=== PATIENT | female | born 1980 | race Caucasian/White ===

== ENCOUNTER 2020-07-16 06:37 | Day surgery (SDC) | payer OTHER, SELFPAY ==
[2020-07-10 14:12] VITALS: BMI 26.1
--- NOTE | 2020-07-14 13:47 | HO.ANESPROP2 ---
Documented by User: Rivka Benoit 07/14/20 13:48 HPI - Anesthesia Eval Consult details Narrative: 40yo F for Upper End[facility] and [facility] Past Medical History Medical History Anemia Depression with anxiety Frequent UTI IBS (irritable bowel syndrome) Persistent adjustment disorder with anxiety Surgical History Surgical History Hx of colonoscopy Social History Social History Are you a primary home care and home health aides teacher to a significant other at home: No Do you presently have visiting nurse or other home services: No Smoking Status: Unknown if ever smoked Advance Directives: No Advance Directives Information Provided: No Advance Directives on File: No Meds Allergies Allergy/AdvReac Type Severity Reaction Status Date / Time No Known Allergies Allergy Unverified 07/10/20 14:00 [No Known Allergies*] Home Medications Medication Instructions Recorded Confirmed Type alosetron 1 tab PO BID 07/10/20 07/10/20 History alprazolam 1 tab PO DAILY PRN 07/10/20 07/10/20 History clonidine HCl 1 - 2 tab PO BEDTIME 07/10/20 07/10/20 History dicyclomine 1 - 2 cap PO QID PRN 07/10/20 07/10/20 History doxepin 1 cap PO BEDTIME 07/10/20 07/10/20 History fluoxetine 2 cap PO QAM 07/10/20 07/10/20 History lamotrigine 1 tab PO BID 07/10/20 07/10/20 History loperamide [Imodium A-D] 2 mg PO Q6H PRN 07/10/20 07/10/20 History Exam Exam Date and Time: July 14, 2020 1347 Height,Weight and Vital Signs: Height 5 ft 9.5 in Weight 81.465 kg Pertinent Lab Results Pertinent Lab Results: Laboratory Tests 05/18/20 05/18/20 13:54 13:54 WBC 6.4 Hgb 11.3 L Hct 33.8 L Plt Count 317 Sodium 136 Potassium 3.9 Chloride 105 BUN 13 Creatinine 0.96 Assessment and Plan Assessment Anesthesia Assessment: Chart Reviewed Documented by User: Ashley Dunaway 07/16/20 07:48 [facility] Past Medical History Medical History Anemia Depression with anxiety Frequent UTI IBS (irritable bowel syndrome) Persistent adjustment disorder with anxiety Surgical History Surgical History Hx of colonoscopy Social History Social History Are you a primary home care and home health aides teacher to a significant other at home: No Do you presently have visiting nurse or other home services: No Smoking Status: Unknown if ever smoked Advance Directives: No Advance Directives Information Provided: No Advance Directives on File: No Meds Allergies Allergy/AdvReac Type Severity Reaction Status Date / Time No Known Allergies Allergy Unverified 07/10/20 14:00 [No Known Allergies*] Home Medications Medication Instructions Recorded Confirmed Type alosetron 1 tab PO BID 07/10/20 07/10/20 History alprazolam 1 tab PO DAILY PRN 07/10/20 07/10/20 History clonidine HCl 1 - 2 tab PO BEDTIME 07/10/20 07/10/20 History dicyclomine 1 - 2 cap PO QID PRN 07/10/20 07/10/20 History doxepin 1 cap PO BEDTIME 07/10/20 07/10/20 History fluoxetine 2 cap PO QAM 07/10/20 07/10/20 History lamotrigine 1 tab PO BID 07/10/20 07/10/20 History loperamide [Imodium A-D] 2 mg PO Q6H PRN 07/10/20 07/10/20 History Exam Airway Mallampati Class: II TM Dist: >3cm Neck ROM: Full Heart: RRR Lungs: CTA Assessment and Plan Assessment Anesthesia Assessment: Anesthesia Plan Discussed and Chart Reviewed Final Anesthetic Review NPO: Yes ASA Class: II Final Preanesthetic Review: Meds/Allgs Chart Reviewed, Consent Obtained/Reviewed and Anes Risks/Benef Reviewed Patient Risk: Low Procedure Risk: Intermediate Anesthetic Plan Anesthetic Plan: MAC: Disposition: Standard PACU
[2020-07-16 06:44] VITALS: BP 158/106; PULSE 107; RESP 18; TEMP 36.7; O2SAT 98
[2020-07-16] MEDS: Lactated Ringers 1,000 ML 100 ML IVCONT (07:05)
[2020-07-16 07:08] LABS: UPreg QC Valid YES
[2020-07-16 07:10] LABS: Urine Pregnancy NEGATIVE (NEGATIVE)
--- NOTE | 2020-07-16 07:21 | MHC.SHP ---
Pre-Procedural Eval Section B Chief Complaint: ANEMIA Details of Present Illness: Diarrhea, colon cancer screening No clinical changes since 05/06/20 Relevant Family History (Specify if Yes): No Relevant Social History: Alcohol Use (social) Present Medications: see Short Stay Collaborative assessment Medical History: Significant History (Depression/Anxiety) History of Previous Operations: Relevant previous surgery/procedure and date(s) (colonoscopy 12 years ago--[place]) Allergies: Allergies Allergy/AdvReac Type Severity Reaction Status Date / Time No Known Allergies Allergy Unverified 07/10/20 14:00 [No Known Allergies*] Review of Systems Sugical H&P ROS: Negative: Constitution, Cardiovascular, Respiratory, Psychiatric and Gastrointestinal Exam Surgical H&P Exam: Normal: HEENT, Normal: Heart, Normal: Lungs and Normal: Abdomen Plan Diagnosis/Plan: Unchanged Patient has been examined and remains a candidate for the planned procedures--YES
[2020-07-16 08:25] VITALS: BP 113/73; PULSE 79; TEMP 36.6; O2SAT 99
--- NOTE | 2020-07-16 08:27 | PM.PROC ---
Brief Operative Note Date of procedure: 07/16/20 Pre-op diagnosis: DIARRHEA, COLON CANCER SCREENING Post-op diagnosis: other (SUPERFICIAL GASTRITIS, NEG COLON) Procedure: EGD W/ BX; COLO WITH MULTIPLE BX Anesthesia: MAC (Yamilka ESPINOZA CRNA) Surgeon: Meka Alcazar Estimated blood loss (mL): 10 Pathology: other (DUODENAL,GASTRIC, TERMINAL ILEAL, RIGHT COLON, LEFT COLON, RECTOSIGMOID) Condition: stable Disposition: PACU
--- NOTE | 2020-07-16 08:32 | PC.NURSE ---
patient alert and awake. sitting up. no s/sx of resp distress. po challenge.
--- NOTE | 2020-07-16 08:41 | PC.NURSE ---
patient sitting up bed drinkiong gee humberto. no complaints.
--- NOTE | 2020-07-16 08:41 | HO.POSTANES ---
Post Anesthesia Evaluation Post Anesthesia Evaluation Vital Signs: Vital Signs Temp Pulse Resp BP Pulse Ox 07/16/20 08:25 97.8 F 79 113/73 99 07/16/20 06:44 98.1 F 107 H 18 158/106 H 98 Anesthesia: Monitored Mental Status: Awake Pain Control: Satisfactory Nausea/Vomiting: None Hydration: Adequate Anesthesia-Related Issues: No Anes. Related Issues
[2020-07-16 08:42] VITALS: BP 132/85; PULSE 79; RESP 16
--- NOTE | 2020-07-16 08:46 | PC.NURSE ---
morro po challenge. swallows without issues. called for ride. 100 lr infused in pacu.
--- NOTE | 2020-07-16 08:55 | PC.NURSE ---
voided in bathroom one assist. denies pain or nausea. removed iv. dressing self in chair.
--- NOTE | 2020-07-16 10:23 | OP_ITS ---
SURGEON: Meka Alcazar MD PREOPERATIVE DIAGNOSIS: Chronic diarrhea with urgency;Colon cancer screening POSTOPERATIVE DIAGNOSIS: Superficial gastritis; Colonoscopy:Neg PROCEDURE PERFORMED: EGD with bx, [place] with multiple bx ESTIMATED BLOOD LOSS: Minimal. COMPLICATIONS: None. ANESTHESIA: Monitored ANESTHESIOLOGIST: Janine Alfred CRNA ASSISTANTS: No assistant professor of music. SPECIMENS: Specimens removed, duodenal biopsy, gastric biopsy, upper endoscopy. Colonoscopy specimens terminal ileum, right colon, left colon, rectosigmoid. PREOPERATIVE DIAGNOSES: Diarrhea, intermittent worsening ? irritable bowel with diarrhea versus inflammatory bowel disease, colon cancer screening PRIMARY CARE PROVIDER: Janine Villar NP SPINNING LATHE OPERATOR AUTOMATIC: Dr. Alcazar. PROCEDURES PERFORMED: Esophagogastroduodenoscopy with biopsy and colonoscopy with biopsy. CONDITION: Postop, stable. FINDINGS ON ENDOSCOPY: Video endoscope was introduced without difficulty. It was navigated into the esophagus. Esophageal mucosa was normal. GE junction was clear and distinct. No hiatal hernia was noted. On entering the stomach, there was generalized erythema in the antrum. Duodenal bulb and duodenum were slightly, erythematous with no erosions or ulcers noted. FINDINGS ON COLONOSCOPY: Digital rectal exam revealed sphincter tone to be adequate. Video colonoscope was introduced without difficulty. It was navigated into the rectosigmoid and sigmoid up to cecum. Appendiceal orifice was seen. Ileocecal valve was seen. I was able to enter the distal ileum--normal appearing villi. Random biopsies were obtained at all levels. PLAN: We will review bx and alter management over the next 4 weeks. Monitored. GRAFT OR IMPLANTS: None. Meka Alcazar MD MEN/MODL / [phone] [facility]
== END 2020-07-16 09:08 | disposition home or self-care (01) ==
PROVIDERS: Nurse Practitioner; Visit Provider Internal Medicine Gastroenterology
PROC: (CPT 45380; principal; 2020-07-16 07:30)
DX: Z12.11 Encounter for screening for malignant neoplasm of colon (principal); K58.0 Irritable bowel syndrome with diarrhea; K29.30 Chronic superficial gastritis without bleeding; F32.9 Major depressive disorder, single episode, unspecified; F43.22 Adjustment disorder with anxiety; Z79.899 Other long term (current) drug therapy
CPT/HCPCS: 45380; 43239; 81025; 88305; 88342; J1100; J2250

== ENCOUNTER → 2020-08-17 08:29 | Outpatient (BNVA) | payer OTHER, SELFPAY | PROVIDERS: PCP Nurse Practitioner Family; Referring Provider Nurse Practitioner Family; Visit Provider Internal Medicine Gastroenterology | DX: Z76.89 Persons encountering health services in other specified circumstances (principal) ==

== ENCOUNTER 2021-06-20 12:51 | Emergency (ER) | payer OTHER, SELFPAY ==
--- NOTE | ~2021-06-20 | CT_ITS ---
EXAMINATION: CT HEAD WITHOUT CONTRAST CLINICAL INFORMATION: Hypertensive crisis with headache COMPARISON: Head CT November 22, 2015 TECHNIQUE: Contiguous axial imaging was performed from the skull base to vertex without intravenous administration of contrast. This CT examination was performed using dose optimization techniques as appropriate, variously including the following: *Automated exposure control *Adjustment of mA and/or kV according to patient size (this includes techniques or standardized protocols for targeted exams where dose is matched to indication/reason for exam; i.e. extremities or head) *Use of iterative reconstruction technique DLP: 723 mGy-cm FINDINGS: There is no evidence of acute intracranial hemorrhage or territorial infarction. No abnormal mass effect or midline shift is seen. [place] to white matter differentiation is well preserved. No extra-axial fluid collections are identified. The ventricles are normal in size. There is no abnormal attenuation within the brain parenchyma. The osseous structures and soft tissues are normal. The mastoid air cells and visualized portions of the paranasal sinuses are well aerated. CT/CT head/brain wo con IMPRESSION: No acute intracranial pathology.
--- NOTE | 2021-06-20 12:58 | ECG_ITS ---
Test Reason : CHEST PAIN Blood Pressure : / mmHG Vent. Rate : 107 BPM Atrial Rate : 107 BPM P-R Int : 188 ms QRS Dur : 086 ms QT Int : 334 ms P-R-T Axes : 063 032 035 degrees QTc Int : 445 ms Sinus tachycardia Nonspecific ST abnormality Possible Left atrial enlargement Abnormal ECG Heart rate has increased Referred By: Generic ED Physician Electronically Signed By:IRIS PRICE MD
[2021-06-20 13:24] VITALS: BMI 24.0
[2021-06-20 13:28] VITALS: BP 167/109; PULSE 100; RESP 16; O2SAT 100
--- NOTE | 2021-06-20 13:40 | ED.GENADULT ---
HPI - General Adult General Chief complaint: Headache Stated complaint: HBP Time Seen by Provider: 06/20/21 13:08 Source: patient Mode of arrival: ambulatory Limitations: no limitations History of Present Illness HPI narrative: 41 yold Patient with pmh of anixety, Hypertension, and IBS presents to ED for hypertension. Patient states she has been recording her blood pressure and is been elevated with also slight headache since Monday. Patient patient states since Monday having elevated blood pressure while working. Patient called her PCP who put her on Norvasc. Patient also states having heart palpitations. Patient admits to history of anxiety but never officially diagnosed with high blood pressure until this past Monday with the PCP doing over the phone prescription. Patient denies any chest pain or shortness of breath. Patient states no slurred speech, loss of vision, or paralysis of extremities. Patient denies any facial droop. Patient denies any drug abuse. Patient denies suddenly stop taking her clonazepam. Related Data Home Medications Medication Instructions Recorded Confirmed alosetron 1 mg tablet 1 tab PO BID 07/10/20 08/17/20 alprazolam 1 mg tablet 1 tab PO DAILY PRN 07/10/20 07/10/20 clonidine HCl 0.1 mg tablet 1 - 2 tab PO BEDTIME 07/10/20 08/17/20 dicyclomine 10 mg capsule 1 - 2 cap PO QID PRN 07/10/20 08/17/20 doxepin 25 mg capsule 1 cap PO BEDTIME 07/10/20 08/17/20 fluoxetine 20 mg capsule 2 cap PO QAM 07/10/20 08/17/20 lamotrigine 100 mg tablet 1 tab PO BID 07/10/20 08/17/20 loperamide 2 mg capsule (Imodium 2 mg PO Q6H PRN 07/10/20 08/17/20 A-D) clonazepam 1 mg tablet 1 mg PO BEDTIME 08/17/20 08/17/20 Allergies Allergy/AdvReac Type Severity Reaction Status Date / Time No Known Allergies Allergy Unverified 07/10/20 14:00 [No Known Allergies*] Review of Systems Review of Systems: Yes all other systems are reviewed and are negative Constitutional: Constitutional: Reports as per HPI, Reports no additional constitutional complaints and Reports headache(s) Eyes: Eyes: Reports as per HPI and Reports no additional eye complaints ENT: Reports system reviewed and no additional complaints, except as documented, Reports as per HPI and Reports headache(s) Cardiovascular: Cardiovascular: Reports as per HPI and Reports no additional cardiovascular complaints Comments: palpitations Respiratory: Respiratory: Reports as per HPI and Reports no additional respiratory complaints Gastrointestinal: Gastrointestinal: Reports as per HPI and Reports no additional gastrointestinal complaints Genitourinary: Genitourinary: Reports no additional female genitourinary complaints and Reports as per HPI Musculoskeletal: Musculoskeletal: Reports no additional musculoskeletal complaints and Reports as per HPI Neurologic: Reports system reviewed and no additional complaints, except as documented, Reports as per HPI and Reports headache(s) Psychiatric: Psychiatric: Reports no additional psychiatric complaints and Reports as per HPI [facility] Past Medical History Medical History (Updated 06/20/21 @ 17:14 by REGINA Garcia) Anemia Depression with anxiety Frequent UTI IBS (irritable bowel syndrome) Persistent adjustment disorder with anxiety Surgical History (Updated 08/17/20 @ 09:03 by Meka Alcazar MD) Hx of colonoscopy Family History Family History (Updated 08/17/20 @ 09:05 by Meka Alcazar MD) Father IBS (irritable colon syndrome) Mother No problems noted. Social History Social History (Updated 08/17/20 @ 08:35 by CHRISTIEN Andrews) Household Members: None Are you a primary child caregiver private home to a significant other at home: No Do you presently have visiting nurse or other home services: No Alcohol intake: current Alcohol intake frequency: holidays/special occasions only Alcohol type: beer Patient Tobacco Use Status: Never used Tobacco Use of substances other than those prescribed or required for medical reasons: No Advance Directives: Yes Advance Directives Information Provided: Yes Advance Directives on File: No Current occupational status: employed Current occupation: OR at [employer] [place] Physical Exam Vital Signs: Vital Signs: Last Vital Signs Temp 98.5 F 06/20/21 13:42 Pulse 84 06/20/21 15:48 Resp 15 06/20/21 15:48 BP 129/87 06/20/21 15:48 Pulse Ox 97 06/20/21 15:48 Body Mass Index 24.0 Const: General: cooperative, healthy appearing, comfortable, no acute distress, well developed, alert and awake Orientation/consciousness: patient oriented x3 HENMT: Other: Negative nystagmus Head: Yes normal to inspection, Yes No palpable skull fracture present, Yes normocephalic, Yes atraumatic, No abrasion, No Acrocyanosis present, No Evans's sign, No contusion, No cranial bruits, No hematoma, No laceration, No occipital foramen tenderness, No palpable skull fracture, No raccoon eyes, No scalp lesion, No scalp tenderness, No Temporal artery tenderness present and No periorbital ecchymosis Eyes: General: appearance normal, both eyes and all related structures Neck: Neck: Yes normal visual inspection, Yes full ROM, Yes no lymphadenopathy, Yes no meningeal signs, Yes trachea midline, Yes supple and No tender Chest: Chest palpation & inspection: normal inspection of the chest and normal palpation of entire chest wall Resp: Effort & Inspection: normal respiratory effort and able to speak in complete sentences Auscultation: clear to auscultation bilaterally Cardio: Jugular venous distension: no JVD Heart sounds: S1 normal heart sound present and S2 normal heart sound present GI: Inspection: Yes normal to inspection and No abdominal wall ecchymosis Palpation (GI): Soft to palpation, not firm, nontender, no guarding and not rigid : General: No CVA tenderness and Yes no CVA tenderness Back/Spine/Pelvis: Back: no CVA tenderness, No CVA tenderness and No back tenderness Neuro: Other: Negative facial droop. Negative slurred speech. All extremities equal strength 5+. Negative pronator drift. Finger to nose and rapid hand movement intact. Negative Romberg. General: patient oriented x3, gait normal, no meningeal signs and CN's II-XI intact bilaterally Cranial nerves: Yes CN's II-XII intact bilaterally Extrem: General: Yes normal to inspection and Yes full ROM Psych: Other: Anxious, tearful Appearance: grossly normal, well kempt and not disheveled Course Course Course Narrative: Will do a medical workup for hypertensive crisis. Include EKG, lab work, Tylenol, head CT scan, and clonidine. Reevaluation(s) Reevaluation #1: Patient blood pressure monitor was 190/104 so clonidine was ordered. Negative for any neuro deficit Time: 14:20 Reevaluation #2: EKG negative STEMiI. Blood pressure 129/87. Patient not in any distress. Labs are normal. Kidney function is fine. Head CT scan negative. Patient informed to follow-up PCP. Spoke with Dr. Zimmer who does not recommend any change in blood pressure. Recommend patient follow-up with primary care provider. Patient given copy of labs, imaging, EKG, and CT scan for follow-up with primary care provider. Time: 17:09 Medical Decision Making MDM Narrative Medical decision making narrative: Hypertension Lab Data Result diagrams: 06/20/21 13:49 06/20/21 13:49 Labs: Lab Results 06/20/21 06/20/21 06/20/21 Range/Units 13:49 13:49 13:49 WBC 7.2 (4.8-10.8) X10*3/uL RBC 3.97 L (4.20-5.50) X10*6/uL Hgb 11.4 L (12.0-16.0) g/dl Hct 32.8 L (37-47) % MCV 82.6 (80-98) fL MCH 28.7 (27.0-33.0) pg MCHC 34.8 (31.0-35.0) g/dl RDW 13.4 (11.0-16.0) % Plt Count 283 (160-400) X10*3/uL MPV 10.3 (9.4-12.3) fL Immature Gran % (Auto) 0.3 (0.0-0.4) % Neut % (Auto) 70.5 (45-73) % Lymph % (Auto) 20.0 (20-40) % [place] % (Auto) 7.5 (2-11) % Eos % (Auto) 1.0 (0-4) % Baso % (Auto) 0.7 (0-2) % Lymph # (Auto) 1.4 (1.2-4.9) X10*3/uL [place] # (Auto) 0.5 (0.1-1.2) X10*3/uL Eos # (Auto) 0.1 (0.0-0.4) X10*3/uL Baso # (Auto) 0.1 (0.0-0.2) X10*3/uL Abs Immat Gran (auto) 0.02 (0.00-0.03) X10*3/uL Absolute Neuts (auto) 5.1 (2.0-8.3) X10*3/uL Absolute Nucleated RBC 0.000 (0.0-0.012) X10*3/uL Nucleated RBC % (auto) 0.0 (0.0-0.2) /100WBC PT 12.1 (9.9-13.0) SEC INR 1.1 (0.9-1.1) APTT 41.6 H (24.1-38.0) SEC Sodium 140 (135-145) mmol/L Potassium 3.6 (3.3-5.1) mmol/L Chloride 106 (96-108) mmol/L Carbon Dioxide 23 (22-29) mmol/L Anion Gap 15 (12-20) BUN 15 (9-16) mg/dL Creatinine 0.88 (0.5-1.4) mg/dL Estim Creat Clear Calc 72.6 Estimated GFR > 60 Random Glucose 96 (60-115) mg/dL Calcium 9.4 (8.4-10.2) mg/dL Total Bilirubin 0.2 (0.0-1.0) mg/dL AST 22 (5-31) U/L ALT 17 (0-31) U/L Alkaline Phosphatase 76 (39-117) U/L Troponin I High Sens (<3.5-17.0) ng/L Total Protein 7.4 (6.5-8.0) g/dL Albumin 4.6 (3.5-5.0) g/dL TSH 1.03 (0.32-4.0) uIU/mL Beta HCG, Quant < 2 mIU/mL 06/20/21 Range/Units 13:49 WBC (4.8-10.8) X10*3/uL RBC (4.20-5.50) X10*6/uL Hgb (12.0-16.0) g/dl Hct (37-47) % MCV (80-98) fL MCH (27.0-33.0) pg MCHC (31.0-35.0) g/dl RDW (11.0-16.0) % Plt Count (160-400) X10*3/uL MPV (9.4-12.3) fL Immature Gran % (Auto) (0.0-0.4) % Neut % (Auto) (45-73) % Lymph % (Auto) (20-40) % [place] % (Auto) (2-11) % Eos % (Auto) (0-4) % Baso % (Auto) (0-2) % Lymph # (Auto) (1.2-4.9) X10*3/uL [place] # (Auto) (0.1-1.2) X10*3/uL Eos # (Auto) (0.0-0.4) X10*3/uL Baso # (Auto) (0.0-0.2) X10*3/uL Abs Immat Gran (auto) (0.00-0.03) X10*3/uL Absolute Neuts (auto) (2.0-8.3) X10*3/uL Absolute Nucleated RBC (0.0-0.012) X10*3/uL Nucleated RBC % (auto) (0.0-0.2) /100WBC PT (9.9-13.0) SEC INR (0.9-1.1) APTT (24.1-38.0) SEC Sodium (135-145) mmol/L Potassium (3.3-5.1) mmol/L Chloride (96-108) mmol/L Carbon Dioxide (22-29) mmol/L Anion Gap (12-20) BUN (9-16) mg/dL Creatinine (0.5-1.4) mg/dL Estim Creat Clear Calc Estimated GFR Random Glucose (60-115) mg/dL Calcium (8.4-10.2) mg/dL Total Bilirubin (0.0-1.0) mg/dL AST (5-31) U/L ALT (0-31) U/L Alkaline Phosphatase (39-117) U/L Troponin I High Sens 4.2 (<3.5-17.0) ng/L Total Protein (6.5-8.0) g/dL Albumin (3.5-5.0) g/dL TSH (0.32-4.0) uIU/mL Beta HCG, Quant mIU/mL ECG Data Interpretation: Sinus tachycardia. Ventricular rate 107. Pr interval 188. QRS 86. QTC 445. Negative STEMI Discharge Plan Discharge Clinical Impression: Hypertension Patient Disposition: Home, Self-Care Instructions: Hypertension (ED) Additional Instructions: Continue taking Norvasc as prescribed by primary care provider. Your head CT scan, EKG, and blood work came back negative. Please follow-up with primary care as soon as possible. Return to the ED Beth for any chest pain, shortness of breath, slurred speech, facial droop, paralysis of extremities, severe headache, photophobia, or any other concerning symptoms. Prescriptions: No Action clonidine HCl 0.1 mg tablet 1 - 2 tab PO BEDTIME RF: 0 alprazolam 1 mg tablet 1 tab PO DAILY PRN (Reason: Anxiety) RF: 0 doxepin 25 mg capsule 1 cap PO BEDTIME RF: 0 alosetron 1 mg tablet 1 tab PO BID RF: 0 fluoxetine 20 mg capsule 2 cap PO QAM RF: 0 dicyclomine 10 mg capsule 1 - 2 cap PO QID PRN (Reason: cramps) RF: 0 lamotrigine 100 mg tablet 1 tab PO BID RF: 0 loperamide [Imodium A-D] 2 mg Capsule 2 mg PO Q6H PRN (Reason: Diarrhea) RF: 0 clonazepam 1 mg tablet 1 mg PO BEDTIME RF: 0 Stand Alone Forms: Work/School Release Discharge Date/Time: 06/20/21 17:30 Print Language: Lithuanian
[2021-06-20 13:42] VITALS: TEMP 36.9
[2021-06-20 13:52] VITALS: BP 173/102; PULSE 95
[2021-06-20] MEDS: cloNIDine HCL 0.2 MG TABLET PO (13:52)
[2021-06-20] MEDS: Acetaminophen 325 MG TABLET 650 MG PO (13:52)
[2021-06-20 13:54] LABS: MANUAL DIFF FLAG NO
[2021-06-20 13:55] LABS: Basophils Absolute Auto 0.1 X10*3/uL (0.0-0.2); Basophils Percent Auto 0.7 % (0-2); Eosinophils Absolute Auto 0.1 X10*3/uL (0.0-0.4); Hematocrit 32.8 % (37-47); Hemoglobin 11.4 g/dl (12.0-16.0); Imm Gran Abs Auto 0.02 X10*3/uL (0.00-0.03); Imm Gran Pct Auto 0.3 % (0.0-0.4); Lymphocytes Absolute Auto 1.4 X10*3/uL (1.2-4.9); Mean Corpuscular HGB Conc 34.8 g/dl (31.0-35.0); Mean Corpuscular Hemoglobin 28.7 pg (27.0-33.0); Mean Corpuscular Volume 82.6 fL (80-98); Mean Platelet Volume 10.3 fL (9.4-12.3); Monocytes Absolute Auto 0.5 X10*3/uL (0.1-1.2); Monocytes Percent Auto 7.5 % (2-11); Neutrophils Absolute Auto 5.1 X10*3/uL (2.0-8.3); Neutrophils Percent Auto 70.5 % (45-73); Platelet Count 283 X10*3/uL (160-400); Red Blood Count 3.97 X10*6/uL (4.20-5.50); Red Cell Distribution Width 13.4 % (11.0-16.0); White Blood Count 7.2 X10*3/uL (4.8-10.8)
[2021-06-20 14:02] LABS: INTERNATIONAL NORM RATIO 1.1 (0.9-1.1); Prothrombin Time 12.1 SEC (9.9-13.0)
[2021-06-20 14:04] LABS: Partial Thromboplastin Time 41.6 SEC (24.1-38.0)
[2021-06-20 14:10] LABS: Alanine Aminotransferase 17 U/L (0-31); Albumin Level 4.6 g/dL (3.5-5.0); Alkaline Phosphatase 76 U/L (39-117); Anion Gap 15 (12-20); Aspartate Amino Transferase 22 U/L (5-31); Bilirubin Total 0.2 mg/dL (0.0-1.0); Blood Urea Nitrogen 15 mg/dL (9-16); Calcium 9.4 mg/dL (8.4-10.2); Carbon Dioxide 23 mmol/L (22-29); Chloride 106 mmol/L (96-108); Creatinine Clr Calc Pharmacy 72.6; Estimated Glomerular Filt Rate > 60; Glucose Random 96 mg/dL (60-115); Potassium 3.6 mmol/L (3.3-5.1); Sodium 140 mmol/L (135-145); Total Protein 7.4 g/dL (6.5-8.0)
[2021-06-20 14:14] LABS: Troponin-I High Sensitivity 4.2 ng/L (<3.5-17.0)
[2021-06-20 14:30] LABS: HCG Quantitative < 2 mIU/mL; Thyroid Stimulating Hormone 1.03 uIU/mL (0.32-4.0)
[2021-06-20 15:48] VITALS: BP 129/87; PULSE 84; RESP 15; O2SAT 97
[2021-06-20 17:30] VITALS: BP 123/88; PULSE 82; RESP 15; O2SAT 99
== END 2021-06-20 17:30 | disposition home or self-care (01) ==
PROVIDERS: Physician Assistant; Emergency Provider Emergency Medicine; PCP Nurse Practitioner Family
DX: I10 Essential (primary) hypertension (principal)
CPT/HCPCS: 36415; 70450; 80053; 84443; 84484; 84702; 85025; 85610; 85730; 93005; 99284; 99285

== ENCOUNTER 2021-07-06 15:17 | Outpatient (REF) | payer OTHER, SELFPAY ==
[2021-07-06 15:56] LABS: Anion Gap 11 (12-20); Blood Urea Nitrogen 13 mg/dL (9-16); Calcium 9.2 mg/dL (8.4-10.2); Carbon Dioxide 26 mmol/L (22-29); Chloride 104 mmol/L (96-108); Estimated Glomerular Filt Rate > 60; Sodium 137 mmol/L (135-145)
== END 2021-07-06 15:18 | disposition home or self-care (01) ==
LOC: HO.LAB 15:17
PROVIDERS: PCP Nurse Practitioner Family; Visit Provider Nurse Practitioner Family
DX: I10 Essential (primary) hypertension (principal)
CPT/HCPCS: 36415; 80051; 82310; 82565; 84520

== ENCOUNTER 2021-08-13 14:55 | Outpatient (REF) | payer OTHER, SELFPAY ==
[2021-08-13 15:48] LABS: Anion Gap 11 (12-20); Blood Urea Nitrogen 12 mg/dL (9-16); Calcium 9.4 mg/dL (8.4-10.2); Carbon Dioxide 26 mmol/L (22-29); Chloride 108 mmol/L (96-108); Estimated Glomerular Filt Rate > 60; Potassium 3.7 mmol/L (3.3-5.1); Sodium 141 mmol/L (135-145)
== END 2021-08-13 14:56 | disposition home or self-care (01) ==
LOC: HO.LAB 14:55
PROVIDERS: PCP Nurse Practitioner Family; Visit Provider Nurse Practitioner Family
DX: I10 Essential (primary) hypertension (principal)
CPT/HCPCS: 36415; 80051; 82310; 82565; 84520